=== PATIENT | male | born 1965 | race Caucasian/White ===

== ENCOUNTER → 2021-07-25 | Day surgery (SDC) | payer BC ==
[~2021-07-25] MED LIST: Propofol 200 MG/20 ML SDV ONE
[2021-07-25] MEDS: Lactated Ringers 1,000 ML IV SCH (08:47)
[2021-07-25 10:17] VITALS: BP 122/77
[2021-07-25 10:26] VITALS: PULSE 63
--- NOTE | 2021-07-25 10:42 | OR ---
DATE OF OPERATION: 07/25/2021 PREOPERATIVE DIAGNOSIS: HISTORY OF POLYPS. POSTOPERATIVE DIAGNOSIS: HISTORY OF POLYPS. SURGEON: Mika Almaraz MD PROCEDURE: DIAGNOSTIC COLONOSCOPY. ANESTHESIA: MAC. COMPLICATIONS: None. SPECIMEN: None. FINDINGS: 1. Full-length colonoscopy. 2. Mild sigmoid diverticulosis. 3. No signs of polyp recurrence. RECOMMENDATIONS: Followup colonoscopy in 10 years. INDICATIONS: The patient 5 years ago had a screening colonoscopy with a small polyp removed. He was due for a 5-year followup. DESCRIPTION OF PROCEDURE: The patient was prepped and draped, placed in the left lateral decubitus position. A lubricated Olympus colonoscope was inserted and easily advanced to the cecum. Direct visualization of ileocecal valve and appendiceal orifice was accomplished. The bowel prep was excellent. Upon withdrawal of the scope, the cecum, ascending, transverse colons were completely benign. No signs of any lesions in the descending colon. The patient does have scattered diverticula in the sigmoid colon, very mild in severity. No inflammatory changes seen. Throughout the length of the colon, I could find no polyps, masses, ulceration, or bleeding sites. No vascular abnormalities or signs of colitis. The rectal vault was benign. Retroflexion of scope in the rectum showed no anal lesions. Air was suctioned. Scope removed without complication. ANIKA/BRITTNI /[id number]
== END ==
LOC: CC.SDS 08:22
PROVIDERS: ATTEND Family Medicine
DX: Z12.11 Encounter for screening for malignant neoplasm of colon (principal); K57.30 Diverticulosis of large intestine without perforation or abscess without bleeding; Z86.010 Personal history of colon polyps; E78.5 Hyperlipidemia, unspecified; N40.1 Benign prostatic hyperplasia with lower urinary tract symptoms; R35.1 Nocturia; Z79.82 Long term (current) use of aspirin; Z79.899 Other long term (current) drug therapy; Z90.49 Acquired absence of other specified parts of digestive tract; Z98.890 Other specified postprocedural states
CPT/HCPCS: J2704; J7120

== ENCOUNTER 2023-01-27 03:55 | Emergency (ER) | payer BC ==
[2023-01-27] MEDS ORDERED: Sodium Chloride 0.9% 10 ML Syringe FLUSH PRN (04:19)
[2023-01-27] MEDS: Sodium Chloride 0.9% 1,000 ML IV ONE (04:32)
[2023-01-27] MEDS: Ondansetron 4 MG/2 ML SDV IVPUSH ONE (04:40)
[2023-01-27] MEDS: HYDROmorphone 0.5 MG/0.5 ML Syringe IVPUSH ONE ×2 (04:40→06:04)
[2023-01-27] MEDS: Iopamidol 755 Mg/ML 100 ML Bottle IVPUSH ONE (05:19)
[2023-01-27 06:52] VITALS: BP 159/89; PULSE 60
== END 2023-01-27 09:13 | disposition home or self-care (01) ==
LOC: CC.ED 03:55
DX: R19.7 Diarrhea, unspecified (principal); Z90.49 Acquired absence of other specified parts of digestive tract
CPT/HCPCS: 36415; 74177; 80053; 81001; 82150; 83690; 85025; 96374; 96375; 96376; 99284-25; J1170; J2405; J7030; Q9967